=== PATIENT | female | born 1930 | race Caucasian/White ===

== ENCOUNTER 2019-08-06 07:27 | Inpatient (IN) | payer OTHER ==
[2019-08-06 09:40] LABS: BASO % 1.1 % (0-2.0); EOS % 2.5 % (0-4.5); HEMATOCRIT 26.5 % (32.4-45.2); HEMOGLOBIN 9.2 GM/dL (10.7-15.3); LYMPH % 5.5 % (8-40); MCH 32.8 pg (25.7-33.7); MCHC 34.7 g/dl (32.0-36.0); MEAN CELL VOLUME 94.4 fl (80-96); MEAN PLT VOLUME 7.7 fl (7.5-11.1); MONO % 6.2 % (3.8-10.2); NEUT % 84.7 % (42.8-82.8); PLATELET COUNT 278 K/MM3 (134-434); RBC 2.81 M/mm3 (3.60-5.2); RDW 17.8 % (11.6-15.6); WHITE BLOOD COUNT 6.9 K/mm3 (4.0-10.0)
[2019-08-06 10:02] LABS: INR 1.19 (0.83-1.09); PROTHROMBIN TIME (PATIENT) 14.1 SEC (9.7-13.0)
[2019-08-06 10:16] LABS: BLOOD UREA NITROGEN 36.9 mg/dL (7-18); CALCIUM 8.9 mg/dL (8.5-10.1); CREATININE 1.3 mg/dL (0.55-1.3); POTASSIUM 5.1 mmol/L (3.5-5.1)
[2019-08-06] MEDS ORDERED: ATENOLOL 25 MG TABLET (FP) PO ONE (10:56)
--- NOTE | 2019-08-06 11:02 | PDOC ---
Documentation entered by Roel Nice SCRIBE, acting as scribe for Jamie Keen MD. Jamie Keen MD: This documentation has been prepared by the Tex merlos Nirvannie, SCRIBE, under my direction and personally reviewed by me in its entirety. I confirm that the documentation accurately reflects all work, treatment, procedures, and medical decision making performed by me. History of Present Illness - General Stated Complaint: NASAL BLEED Time Seen by Provider: 08/06/19 07:47 History Source: Patient Exam Limitations: No Limitations - History of Present Illness Initial Comments: 08/06/19 08:55 The patient is a 89 year old female, with a significant past medical history of hypothyroidism, dementia, hypertension, hyperlipidemia, recurrent epistaxis (s/ p ?L nare cauterization), and atrial fibrillation (on Eliquis), who presents to the emergency department via EMS from [facility] with left nare epistaxis. As per patients son at bedside and EMR, the patient was evaluated in the ER 3 days ago (08/03) for right nare epistaxis and discharged with packing. Son notes during the course of the first night the balloon was removed and after approximately 36 hours the nurse at the facility removed the packing. As per son, she had an appointment with Dr. Hester this morning at 9am, however, missed it secondary to patient experiencing an left nare epistaxis. She denies recent headaches or dizziness. She denies recent nausea, vomit, diarrhea or constipation. She denies recent chest pain or shortness of breath. Allergies: Aspirin. Primary Care Physician: Dr. [facility] Aide: Dr. Winston Brady Past History - Past Medical History Allergies/Adverse Reactions: Allergies Allergy/AdvReac Type Severity Reaction Status Date / Time aspirin Allergy Verified 08/03/19 08:52 Home Medications: Ambulatory Orders Atenolol [Tenormin] 25 mg PO DAILY 08/06/19 Simvastatin [Zocor -] 40 mg PO HS 08/06/19 COPD: No HTN: Yes Hypercholesterolemia: Yes Thyroid Disease: Yes - Psycho Social/Smoking Cessation Hx Smoking History: Never smoked Have you smoked in the past 12 months: No Hx Alcohol Use: No Drug/Substance Use Hx: No Review of Systems - Review of Systems Able to Perform ROS?: Yes Comments:: 08/06/19 08:55 CONSTITUTIONAL: No fever, no chills, no fatigue EYES: No visual changes ENT: +Left nare epistaxis. No ear pain, no sore throat CARDIOVASCULAR: No chest pain, no palpitations RESPIRATORY: No cough, no SOB GI: No abdominal pain, no nausea, no vomiting, no constipation, no diarrhea GENITOURINARY: No dysuria, no frequency, no hematuria MUSKULOSKELETAL: No back pain, no joint pain, no myalgias SKIN: No rash NEURO: No headache All Other Systems: Reviewed and Negative *Physical Exam - Vital Signs Last Vital Signs Temp Pulse Resp BP Pulse Ox 98.0 F 55 L 17 165/89 100 08/06/19 07:40 08/06/19 07:40 08/06/19 07:40 08/06/19 07:40 08/06/19 07:40 - Physical Exam 08/06/19 10:59 EXAMINATION CONSTITUTIONAL: Awake, alert, well nourished, nad HEAD: Normocephalic; atraumatic EYES: PERRL; EOM intact ENMT: + active epistaxis from left nare (direc presure aplied) NECK: Supple; non-tender; no cervical lymphadenopathy CARD: iregularly irregular; 2/6 se murmur, no rubs, or gallops RESP: Normal chest excursion with respiration; breath sounds clear and equal bilaterally; no wheezes, rhonchi, or rales ABD: Soft, non-distended; non-tender; no palpable organomegaly, no palpable hernias EXT: Normal ROM in all four extremities; non-tender to palpation; distal pulses intact SKIN: Warm, dry, no rash NEURO: moving all extr symmetrically; gait-deffered. Heart Score/ECG Review #1 08/06/19 12:08 EKG performed at: 06 Aug 2019 at 11:51:50 Vent Rate: 62 bpm DC interval: 194 ms QRS duration: 86 ms QT/QTc: 460/466 ms P-R-T axes 62 -48 64 Poor data quality, interpretation may be adversely affected. Normal sinus rhythm Left anterior fascicular block Cannot rule out inferior infarct (masked by fascicular block?), age undetermined Anterior infarct, age undetermined Abnormal ECG ED Treatment Course - LABORATORY CBC & Chemistry Diagram: 08/06/19 09:25 08/06/19 09:11 - ADDITIONAL ORDERS Additional order review: Laboratory Results 08/06/19 02 09:25 09:11 PT with INR 14.10 H INR 1.19 H Sodium 140 Potassium 5.1 Chloride 106 Carbon Dioxide 28 Anion Gap 5 L BUN 36.9 H Creatinine 1.3 Est GFR (CKD-EPI)AfAm 42.42 Est GFR (CKD-EPI)NonAf 36.60 Random Glucose 95 Calcium 8.9 TSH 84.90 H 08/06/19 09:25 RBC 2.81 L MCV 94.4 MCHC 34.7 RDW 17.8 H MPV 7.7 Neutrophils % 84.7 H Lymphocytes % 5.5 L D Monocytes % 6.2 Eosinophils % 2.5 Basophils % 1.1 Medical Decision Making - Medical Decision Making 08/06/19 11:01 Patient is an 89-year-old female with multiple comorbidities presents to the ER with recurrent atraumatic epistaxis. Patient is mildly hypertensive, nontoxic- appearing; initial evaluation, patient noted with active epistaxis from the left nare. Large clot evacuated and direct pressure applied. Gauze dressing inserted. Case discussed with Dr. Hester of ENT. He will evaluate the patient for possible cauterization. Patient is also noted to be moderately anemic and severely hypothyroid. [place] [facility] [place]. Discharge - Discharge Information Problems reviewed: Yes Clinical Impression/Diagnosis: Epistaxis Anemia Qualifiers: Anemia type: unspecified type Qualified Code(s): D64.9 - Anemia, unspecified Condition: Fair Disposition: HOME - Follow up/Referral Referrals: Panda Crowe MD [Primary Care Provider] - - Patient Discharge Instructions - Post Discharge Activity
[2019-08-06] MEDS ORDERED: ATENOLOL 25 MG TABLET (FP) ONE (11:12)
[2019-08-06] MEDS ORDERED: SODIUM CHLORIDE 500 ML IV STA (12:25)
--- NOTE | 2019-08-06 13:34 | CON.ENT ---
Consult Consult Specialty:: ENT Referred by:: Dr Keen Reason for Consultation:: nasal bleeding - History of Present Illness Chief Complaint: nasal bleeding History of Present Illness: 89 yo F with hx atrial fibrillation, on Eliquis, presents with acute nasal bleeding left side 3 d agto had acute epistaxis and in ER had right nasal packing placed. this was by report removed by long term staff, but then nasal bleeding developed. She was scheduled for outpatient ENT appointment, but this morning had acute bleeding from left side so was BIBA to ER this morning. left nasal bleeding has improved but BP elevated son and daughter in law are present, provided additional history pt has had intermittent nasal bleeding for ~30 years - History Source History Provided By: Patient, Family Member, Medical Record Limitations to Obtaining History: No Limitations - Alcohol/Substance Use Hx Alcohol Use: No - Smoking History Smoking history: Never smoked Have you smoked in the past 12 months: No Home Medications - Allergies Allergies/Adverse Reactions: Allergies Allergy/AdvReac Type Severity Reaction Status Date / Time aspirin Allergy Verified 08/03/19 08:52 - Home Medications Home Medications: Ambulatory Orders Albuterol Sulfate [Proventil Hfa] 6.7 gm IH PRN PRN 08/06/19 Allopurinol 300 mg PO DAILY 08/06/19 Apixaban [Eliquis -] 2.5 mg PO BID 08/06/19 Atenolol [Tenormin] 25 mg PO DAILY 08/06/19 Donepezil HCl [Aricept -] 10 mg PO HS 08/06/19 Polyethylene Glycol 3350 [Miralax 119 gm Btl -] 17 gm PO DAILY 08/06/19 Simvastatin [Zocor -] 40 mg PO HS 08/06/19 Acetaminophen [Tylenol .Regular Strength -] 650 mg PO Q6H PRN tablet 08/08/19 Allopurinol [Zyloprim -] 300 mg PO DAILY tablet 08/08/19 Atenolol [Tenormin -] 25 mg PO DAILY tablet 08/08/19 Atorvastatin Ca [Lipitor] 20 mg PO HS tablet 08/08/19 Donepezil HCl [Aricept -] 10 mg PO DAILY tablet 08/08/19 Levothyroxine [Synthroid -] 150 mcg PO DAILY@0700 #30 tablet 08/08/19 Physical Exam-ENT Vital Signs: Vital Signs Temperature 98.0 F 08/06/19 07:40 Pulse Rate 66 08/06/19 11:30 Respiratory Rate 20 08/06/19 11:30 Blood Pressure 120/55 L 08/06/19 11:30 O2 Sat by Pulse Oximetry (%) 100 08/06/19 11:30 Constitutional: Yes: No Distress, Calm Head: Yes: WNL Face: Yes: WNL Eyes: Yes: WNL Nasal Passage: Yes: Other (coagulum present right nasal cavity- left undie sturbed left nasal cavity - gauze removed, no active bleeding, lidocaine and phenylephrine placed. some blood in mid nasal cavity and on IT but no active bleeding, smalll telangiectasia left anterior septum NOT associated with a suspected bleeding site) Oral/Pharynx: Yes: Other (no lesions, old blood left oropharynx, no active bleeding, voice clear, strong, no stridor or respiratory distress) Outer Ear: Yes: WNL Ear Canal: Yes: WNL
[2019-08-06] MEDS ORDERED: ALBUTEROL SO4 0.083% IH SOL 2.5 MG/3 ML VIAL.NEB. NEB PRN (15:05)
[2019-08-06 15:15] VITALS: BMI 24.3
--- NOTE | 2019-08-06 15:15 | HP ---
89 F h/o Afib on Eliquis, HTN, HLD, dementia, obesity, presents with acute L nasal bleeding. Patient's family endorses long history of recurrent epistaxis with first episode about 30 years ago. In ED patient was seen by ENT Dr. Hester who placed nasal gel/packing to stop bleeding in L nostril, and patient had R gel/packing in R nostril, on exam she was found to have bleeding telangectasias. Patient otherwise denies fever/chills/N/V/D/ORTA/CP/SOB, mild drop in Hgb noted no transfusion given. Patient to be admitted for further monitoring and management of comorbidities. PE GA comfortable, AAox2 (self and place only), speaking in full sentences HEENT NC/AT, EOMI, nasal plug in R and L nostril with dried blood at surface no active bleeding, neck supple, oral mucosa no ulcers or bleeding, MMM Chest CTAB, no crackles or wheezing CVS Irregularly irregular, BEULAH+ Abd obese, Soft, NT, no guarding Ext No LE edema, no calf tenderness Vital Signs - 24 hr 08/06/19 08/06/19 08/06/19 07:40 10:51 11:30 Temperature 98.0 F Pulse Rate 55 L Pulse Rate [ 64 66 Right Radial] Respiratory 17 16 20 Rate Blood Pressure 165/89 Blood Pressure 116/50 L 120/55 L [Left Arm] O2 Sat by Pulse 100 96 100 Oximetry (%) 08/06/19 13:29 Temperature 98.2 F Pulse Rate Pulse Rate [ 68 Right Radial] Respiratory 16 Rate Blood Pressure Blood Pressure 122/71 [Left Arm] O2 Sat by Pulse 98 Oximetry (%) Laboratory Results - last 24 hr 08/06/19 08/06/19 08/06/19 09:11 09:25 09:25 WBC 6.9 RBC 2.81 L Hgb 9.2 L Hct 26.5 L D MCV 94.4 MCH 32.8 MCHC 34.7 RDW 17.8 H Plt Count 278 MPV 7.7 Absolute Neuts (auto) 5.9 Neutrophils % 84.7 H Lymphocytes % 5.5 L D Monocytes % 6.2 Eosinophils % 2.5 Basophils % 1.1 Nucleated RBC % 0 PT with INR 14.10 H INR 1.19 H Sodium 140 Potassium 5.1 Chloride 106 Carbon Dioxide 28 Anion Gap 5 L BUN 36.9 H Creatinine 1.3 Est GFR (CKD-EPI)AfAm 42.42 Est GFR (CKD-EPI)NonAf 36.60 Random Glucose 95 Calcium 8.9 TSH 84.90 H Blood Type Antibody Screen 08/06/19 12:21 WBC RBC Hgb Hct MCV MCH MCHC RDW Plt Count MPV Absolute Neuts (auto) Neutrophils % Lymphocytes % Monocytes % Eosinophils % Basophils % Nucleated RBC % PT with INR INR Sodium Potassium Chloride Carbon Dioxide Anion Gap BUN Creatinine Est GFR (CKD-EPI)AfAm Est GFR (CKD-EPI)NonAf Random Glucose Calcium TSH Blood Type A POSITIVE Antibody Screen Negative Home Medications Medication Instructions Recorded Albuterol Sulfate [Proventil Hfa] 6.7 gm IH PRN PRN 08/06/19 Allopurinol 300 mg PO DAILY 08/06/19 Apixaban [Eliquis -] 2.5 mg PO BID 08/06/19 Atenolol [Tenormin] 25 mg PO DAILY 08/06/19 Donepezil HCl [Aricept -] 10 mg PO HS 08/06/19 Levothyroxine [Synthroid -] 112 mcg PO DAILY 08/06/19 Polyethylene Glycol 3350 [Miralax 17 gm PO DAILY 08/06/19 (For Daily Use) -] Simvastatin [Zocor -] 40 mg PO HS 08/06/19 Current Medications Generic Name Dose Route Start Last Admin Trade Name Freq PRN Reason Stop Dose Admin Acetaminophen 650 mg 08/06/19 14:43 Tylenol - PO Q6H PRN Fever Or Pain Albuterol Sulfate 1 amp 08/06/19 15:05 Ventolin 0.083% Nebulizer Soln - NEB Q4H PRN SHORT OF BREATH/WHEEZING Allopurinol 300 mg 08/07/19 10:00 Zyloprim - PO DAILY SIMEON Atenolol 25 mg 08/07/19 10:00 Tenormin - PO DAILY SIMEON Atorvastatin Calcium 20 mg 08/06/19 22:00 Lipitor - PO HS SIMEON Donepezil HCl 10 mg 08/07/19 10:00 Aricept - PO DAILY SIMEON A/P: 89 F h/o Afib on Eliquis with recurrent epistaxis, HTN, HLD, dementia, admitted for L nasal epistaxis resolved with local phenylephrine and gel packing. L nasal epistaxis resolved with nasal packing, patient appears to be non-compliant with directions to not blow her nose, was seen in ED to manipulate the nostril and blow her nose, reinforce instruction to patient to not blow her nose or manipulate that area. Transfuse PRN, watch CBC ENT consult: Dr Hester Atrial fibrillation rate controlled, cont. Atenolol hold AC for atleast 24 hours HTn restart home BP meds HLD restart statin Demenetia frequent re-orientation, watch for dawning restart Aricept 10mg daily DVT ppx: SCD Med- surg Visit type - Emergency Visit Emergency Visit: Yes ED Registration Date: 08/06/19 Care time: The patient presented to the Emergency Department on the above date and was hospitalized for further evaluation of their emergent condition. - New Patient This patient is new to me today: Yes Date on this admission: 08/06/19 - Critical Care Critical Care patient: No
[2019-08-06] MEDS: ACETAMINOPHEN 325 MG TABLET (FP) PO PRN (15:22)
--- NOTE | 2019-08-06 16:15 | CONSULT ---
Consult Consult Specialty:: endocrine Referred by:: dr lucy chapa Reason for Consultation:: hypothyroidism - History of Present Illness Chief Complaint: weakness and lethargy History of Present Illness: 89 yo female pmh hypothyroidism,afib on eliquis,dementia, HTN and HLD presented from [facility] for a nose bleed. Reports from OR package state "resident bleeding profusely from nose.has difficulty with communication weakness,lethargic and epistaxis recent events made clinical symptoms difficult to evaluate.found to have sever hypothyroidism, - Alcohol/Substance Use Hx Alcohol Use: No - Smoking History Smoking history: Never smoked Have you smoked in the past 12 months: No Home Medications - Allergies Allergies/Adverse Reactions: Allergies Allergy/AdvReac Type Severity Reaction Status Date / Time aspirin Allergy Verified 08/03/19 08:52 - Home Medications Home Medications: Ambulatory Orders Albuterol Sulfate [Proventil Hfa] 6.7 gm IH PRN PRN 08/06/19 Allopurinol 300 mg PO DAILY 08/06/19 Apixaban [Eliquis -] 2.5 mg PO BID 08/06/19 Atenolol [Tenormin] 25 mg PO DAILY 08/06/19 Donepezil HCl [Aricept -] 10 mg PO HS 08/06/19 Levothyroxine [Synthroid -] 112 mcg PO DAILY 08/06/19 Polyethylene Glycol 3350 [Miralax (For Daily Use) -] 17 gm PO DAILY 08/06/19 Simvastatin [Zocor -] 40 mg PO HS 08/06/19 Physical Exam Vital Signs: Vital Signs Temperature 98.8 F 08/06/19 14:57 Pulse Rate 60 08/06/19 14:57 Respiratory Rate 20 08/06/19 14:57 Blood Pressure 128/68 08/06/19 14:57 O2 Sat by Pulse Oximetry (%) 98 08/06/19 13:29 Constitutional: Yes: Calm Eyes: Yes: EOM Intact HENT: Yes: Normocephalic, Epistaxis, Pharyngeal Erythema, Other Neck: Yes: Trachea Midline Cardiovascular: Yes: Bradycardia Respiratory: Yes: CTA Bilaterally Gastrointestinal: Yes: Normal Bowel Sounds ...Rectal Exam: Yes: Deferred Renal/: Yes: WNL Musculoskeletal: Yes: Muscle Weakness Extremities: Yes: Delayed Capillary Refill, Erythema Edema: No Neurological: Yes: Alert, Confusion, Lethargy Labs: CBC, BMP 08/06/19 09:25 08/06/19 09:11 Problem List - Problems (1) Hypothyroid Problems reviewed: Yes Code(s): E03.9 - HYPOTHYROIDISM, UNSPECIFIED (2) Bleeding nose Problems reviewed: Yes Code(s): R04.0 - EPISTAXIS Assessment/Plan Current Active Problems hypothyroidism smith,severe Anemia (Acute) Bleeding nose (Acute) Abnormal Lab Results 08/06/19 08/06/19 08/06/19 09:11 09:25 09:25 RBC 2.81 L Hgb 9.2 L Hct 26.5 L D RDW 17.8 H Neutrophils % 84.7 H Lymphocytes % 5.5 L D PT with INR 14.10 H INR 1.19 H Anion Gap 5 L BUN 36.9 H TSH 84.90 H plan; synthroid 50mcg ivpush daily once able to take po synthroid 100mcg po daily repeat tsh free t4
[2019-08-06] MEDS: LEVOTHYROXINE SODIUM 100 MCG VIAL IVPUSH SCH (17:28)
[2019-08-06] MEDS: ATORVASTATIN CA 20 MG TABLET (FP) PO SCH (21:27)
--- NOTE | 2019-08-07 08:13 | PN ---
Progress Note, Physician Chief Complaint: Sitting in chair eating breakfast. Nasal bleeding stop with packing. Pleasantly confused. History of Present Illness: 89 F h/o Afib on Eliquis, HTN, HLD, dementia, obesity, presents with acute L nasal bleeding - Current Medication List Current Medications: Active Medications Acetaminophen (Tylenol -) 650 mg PO Q6H PRN PRN Reason: Fever Or Pain Last Admin: 08/06/19 15:22 Dose: 650 mg Albuterol Sulfate (Ventolin 0.083% Nebulizer Soln -) 1 amp NEB Q4H PRN PRN Reason: SHORT OF BREATH/WHEEZING Allopurinol (Zyloprim -) 300 mg PO DAILY [facility] Atenolol (Tenormin -) 25 mg PO DAILY [facility] Atorvastatin Calcium (Lipitor -) 20 mg PO HS [facility] Last Admin: 08/06/19 21:27 Dose: 20 mg Donepezil HCl (Aricept -) 10 mg PO DAILY [facility] Levothyroxine Sodium (Synthroid Injection -) 50 mcg IVPUSH DAILY [facility] Last Admin: 08/06/19 17:28 Dose: 50 mcg - Objective Vital Signs: Vital Signs Temperature 97.8 F 08/06/19 18:00 Pulse Rate 61 08/06/19 18:00 Respiratory Rate 20 08/06/19 18:00 Blood Pressure 123/60 08/06/19 18:00 O2 Sat by Pulse Oximetry (%) 98 08/06/19 13:29 Constitutional: Yes: Well Nourished, No Distress, Calm Eyes: Yes: WNL, Conjunctiva Clear HENT: Yes: Atraumatic, Normocephalic, Other ( nasal plug in R and L nostril with dried blood at surface no active bleeding,) Neck: Yes: WNL, Supple, Trachea Midline Cardiovascular: Yes: WNL, Regular Rate and Rhythm Respiratory: Yes: WNL, Regular, CTA Bilaterally Gastrointestinal: Yes: WNL, Normal Bowel Sounds ...Rectal Exam: Yes: Deferred Genitourinary: Yes: WNL Breast(s): Yes: WNL Musculoskeletal: Yes: WNL Extremities: Yes: WNL Edema: No Peripheral Pulses WNL: Yes Peripheral Pulses: Left Radial: 2+, Right Radial: 2+, Left Doralis Pedis: 2+, Right Dorsalis Pedis: 2+, Left Femoral: 2+, Right Femoral: 2+ Integumentary: Yes: WNL Neurological: Yes: Alert, Confusion (plesantly confused to place) ...Motor Strength: WNL Psychiatric: Yes: WNL Labs: CBC, BMP 08/06/19 09:25 08/06/19 09:11 INR, PTT INR 1.19 (0.83-1.09) H 08/06/19 09:25 - ....Imaging Chest X-ray: Image Reviewed (CXR: no effusion/infiltrates) Problem List - Problems (1) HTN (hypertension) Assessment/Plan: c.w atenolol with hold parameters opt to keep BP well controlled to lowers side to aid with epistaxis Code(s): I10 - ESSENTIAL (PRIMARY) HYPERTENSION (2) HLD (hyperlipidemia) Assessment/Plan: c/w statin Code(s): E78.5 - HYPERLIPIDEMIA, UNSPECIFIED (3) Dementia Assessment/Plan: supportive care fall precautions c/w aricept Code(s): F03.90 - UNSPECIFIED DEMENTIA WITHOUT BEHAVIORAL DISTURBANCE (4) Prophylactic measure Assessment/Plan: FEN Fluids: adequate PO intake Electrolytes: replete as indicated Nutrition: low sodium diet DVT prophylaxis: SCDs, oob, ambulation no chemical AC given epistaxis Dispo: continues to require inpatient care. Full code discharge planning Code(s): Z29.9 - ENCOUNTER FOR PROPHYLACTIC MEASURES, UNSPECIFIED (5) Bleeding nose Assessment/Plan: nasal packing placed by ENT monitor for bleeding mainatin normotension Code(s): R04.0 - EPISTAXIS (6) Afib Code(s): I48.91 - UNSPECIFIED ATRIAL FIBRILLATION (7) Hypothyroid Assessment/Plan: obtain lab results from family, TSH 2 weeks ago at [facility] 102 now 60 seen by endocrinology and IV sythroid given will change to synthroid 100mcg qd and continue to monitor Code(s): E03.9 - HYPOTHYROIDISM, UNSPECIFIED (8) Anemia Assessment/Plan: hgb stable 8.0 no indication for additional PRBC continue to monitor Code(s): D64.9 - ANEMIA, UNSPECIFIED Qualifiers: Anemia type: unspecified type Qualified Code(s): D64.9 - Anemia, unspecified Visit type - Emergency Visit Emergency Visit: Yes ED Registration Date: 08/06/19 Care time: The patient presented to the Emergency Department on the above date and was hospitalized for further evaluation of their emergent condition. - New Patient This patient is new to me today: Yes Date on this admission: 08/07/19 - Critical Care Critical Care patient: No - Discharge Referral Referred to [facility] Med [facility].C[facility] No
[2019-08-07 09:14] LABS: EOS % 4.3 % (0-4.5); HEMOGLOBIN 8.5 GM/dL (10.7-15.3); LYMPH % 16.2 % (8-40); MCH 32.3 pg (25.7-33.7); MCHC 33.9 g/dl (32.0-36.0); MEAN CELL VOLUME 95.1 fl (80-96); MEAN PLT VOLUME 7.9 fl (7.5-11.1); MONO % 7.5 % (3.8-10.2); PLATELET COUNT 244 K/MM3 (134-434); RBC 2.63 M/mm3 (3.60-5.2); RDW 18.1 % (11.6-15.6); WHITE BLOOD COUNT 4.6 K/mm3 (4.0-10.0)
[2019-08-07 09:31] LABS: INR 1.07 (0.83-1.09); PROTHROMBIN TIME (PATIENT) 12.6 SEC (9.7-13.0)
[2019-08-07 09:33] LABS: ACTIVATED PTT 39.2 SECONDS (25.2-36.5)
[2019-08-07] MEDS: LEVOTHYROXINE SODIUM 100 MCG VIAL IVPUSH SCH (09:46)
[2019-08-07] MEDS: DONEPEZIL HCL 10 MG TABLET (FP) PO SCH (09:47)
[2019-08-07] MEDS: ATENOLOL 25 MG TABLET (FP) PO SCH (09:48)
[2019-08-07] MEDS: ALLOPURINOL 300 MG TABLET (FP) PO SCH (09:48)
[2019-08-07] MEDS: ACETAMINOPHEN 325 MG TABLET (FP) PO PRN (09:50)
[2019-08-07 09:54] LABS: ALBUMIN 2.7 g/dl (3.4-5.0); BILIRUBIN,TOTAL 0.3 mg/dL (0.2-1); BLOOD UREA NITROGEN 28.4 mg/dL (7-18); CALCIUM 8.6 mg/dL (8.5-10.1); CREATININE 1.2 mg/dL (0.55-1.3); MAGNESIUM 2.7 mg/dL (1.8-2.4); POTASSIUM 4.8 mmol/L (3.5-5.1); TOT PROT 5.9 g/dl (6.4-8.2)
--- NOTE | 2019-08-07 15:14 | EKG ---
Test Reason : Blood Pressure : / mmHG Vent. Rate : 062 BPM Atrial Rate : 062 BPM P-R Int : 194 ms QRS Dur : 086 ms QT Int : 460 ms P-R-T Axes : 062 -48 064 degrees QTc Int : 466 ms POOR DATA QUALITY, INTERPRETATION MAY BE ADVERSELY AFFECTED NORMAL SINUS RHYTHM LEFT ANTERIOR FASCICULAR BLOCK CANNOT RULE OUT INFERIOR INFARCT (MASKED BY FASCICULAR BLOCK?) , AGE UNDETERMINED ANTERIOR INFARCT (CITED ON OR BEFORE 03-AUG-2019) ABNORMAL ECG WHEN COMPARED WITH ECG OF 03-AUG-2019 10:12, NO SIGNIFICANT CHANGE WAS FOUND Confirmed by ANTHONY BAHENA MD ([id number]) on 08/07/2019 3:13:57 PM Referred By: Confirmed By:ANTHONY BAHENA MD
[2019-08-07] MEDS: ATORVASTATIN CA 20 MG TABLET (FP) PO SCH (21:04)
[2019-08-08 06:30] VITALS: TEMP 97.8
[2019-08-08] MEDS ORDERED: LEVOTHYROXINE NA 100 MCG TABLET (FP) PO SCH (07:00)
--- NOTE | 2019-08-08 08:29 | PN ---
Progress Note, Physician History of Present Illness: 89 F h/o Afib on Eliquis, HTN, HLD, dementia, obesity, presents with acute L nasal bleeding - Current Medication List Current Medications: Active Medications Acetaminophen (Tylenol -) 650 mg PO Q6H PRN PRN Reason: Fever Or Pain Last Admin: 08/07/19 09:50 Dose: 650 mg Albuterol Sulfate (Ventolin 0.083% Nebulizer Soln -) 1 amp NEB Q4H PRN PRN Reason: SHORT OF BREATH/WHEEZING Allopurinol (Zyloprim -) 300 mg PO DAILY [facility] Last Admin: 08/07/19 09:48 Dose: 300 mg Atenolol (Tenormin -) 25 mg PO DAILY [facility] Last Admin: 08/07/19 09:48 Dose: 25 mg Atorvastatin Calcium (Lipitor -) 20 mg PO HS [facility] Last Admin: 08/07/19 21:04 Dose: 20 mg Donepezil HCl (Aricept -) 10 mg PO DAILY [facility] Last Admin: 08/07/19 09:47 Dose: 10 mg Levothyroxine Sodium (Synthroid -) 100 mcg PO DAILY@0700 [facility] Last Admin: 08/08/19 06:11 Dose: 100 mcg - Objective Vital Signs: Vital Signs Temperature 97.8 F 08/08/19 06:29 Pulse Rate 56 L 08/08/19 06:29 Respiratory Rate 20 08/08/19 06:29 Blood Pressure 127/70 08/08/19 06:29 O2 Sat by Pulse Oximetry (%) 98 08/06/19 13:29 Labs: CBC, BMP 08/07/19 07:50 08/07/19 06:00 INR, PTT INR 1.07 (0.83-1.09) 08/07/19 07:50 Problem List - Problems (1) HTN (hypertension) Code(s): I10 - ESSENTIAL (PRIMARY) HYPERTENSION (2) HLD (hyperlipidemia) Code(s): E78.5 - HYPERLIPIDEMIA, UNSPECIFIED (3) Dementia Code(s): F03.90 - UNSPECIFIED DEMENTIA WITHOUT BEHAVIORAL DISTURBANCE (4) Prophylactic measure Code(s): Z29.9 - ENCOUNTER FOR PROPHYLACTIC MEASURES, UNSPECIFIED (5) Bleeding nose Code(s): R04.0 - EPISTAXIS (6) Afib Code(s): I48.91 - UNSPECIFIED ATRIAL FIBRILLATION (7) Hypothyroid Code(s): E03.9 - HYPOTHYROIDISM, UNSPECIFIED (8) Anemia Code(s): D64.9 - ANEMIA, UNSPECIFIED Qualifiers: Anemia type: unspecified type Qualified Code(s): D64.9 - Anemia, unspecified
[2019-08-08] MEDS: ATENOLOL 25 MG TABLET (FP) PO SCH (09:27)
[2019-08-08] MEDS: ALLOPURINOL 300 MG TABLET (FP) PO SCH (09:27)
[2019-08-08] MEDS: DONEPEZIL HCL 10 MG TABLET (FP) PO SCH (09:27)
[2019-08-08 09:36] LABS: BASO % 1.1 % (0-2.0); EOS % 3.3 % (0-4.5); HEMATOCRIT 26.4 % (32.4-45.2); HEMOGLOBIN 9.1 GM/dL (10.7-15.3); LYMPH % 19.9 % (8-40); MCH 33.1 pg (25.7-33.7); MCHC 34.5 g/dl (32.0-36.0); MONO % 7.2 % (3.8-10.2); NEUT % 68.5 % (42.8-82.8); PLATELET COUNT 300 K/MM3 (134-434); RBC 2.75 M/mm3 (3.60-5.2); WHITE BLOOD COUNT 6.1 K/mm3 (4.0-10.0)
[2019-08-08 10:33] LABS: ALBUMIN 2.8 g/dl (3.4-5.0); BILIRUBIN,TOTAL 0.5 mg/dL (0.2-1); BLOOD UREA NITROGEN 27.3 mg/dL (7-18); CALCIUM 8.5 mg/dL (8.5-10.1); CREATININE 1.2 mg/dL (0.55-1.3); MAGNESIUM 2.4 mg/dL (1.8-2.4); POTASSIUM 4.7 mmol/L (3.5-5.1); TOT PROT 5.9 g/dl (6.4-8.2)
[2019-08-08] MEDS ORDERED: LEVOTHYROXINE NA 112 MCG TABLET (FP) PO SCH (13:36)
[2019-08-08] MEDS ORDERED: APIXABAN 2.5 MG TABLET PO SCH (13:45)
[2019-08-08 14:23] VITALS: BP 98/52; PULSE 60
--- NOTE | 2019-08-08 15:20 | DS ---
Physical Exam: SUBJECTIVE: Patient seen and examined OBJECTIVE: Vital Signs Period Temp Pulse Resp BP Sys/Harrington Pulse Ox Last 24 Hr 97.5 F-97.8 F 56-60 20-20 98-127/51-70 PHYSICAL EXAM Constitutional: Yes: Well Nourished, No Distress, Calm Eyes: Yes: WNL, Conjunctiva Clear HENT: Yes: Atraumatic, Normocephalic, Other ( nasal plug in R and L nostril with dried blood at surface no active bleeding,) Neck: Yes: WNL, Supple, Trachea Midline Cardiovascular: Yes: WNL, Regular Rate and Rhythm Respiratory: Yes: WNL, Regular, CTA Bilaterally Gastrointestinal: Yes: WNL, Normal Bowel Sounds ...Rectal Exam: Yes: Deferred Genitourinary: Yes: WNL Breast(s): Yes: WNL Musculoskeletal: Yes: WNL Extremities: Yes: WNL Edema: No Peripheral Pulses WNL: Yes Peripheral Pulses: Left Radial: 2+, Right Radial: 2+, Left Doralis Pedis: 2+, Right Dorsalis Pedis: 2+, Left Femoral: 2+, Right Femoral: 2+ Integumentary: Yes: WNL Neurological: Yes: Alert, Confusion (plesantly confused to place) ...Motor Strength: WNL Psychiatric: Yes: WNL LABS Laboratory Results - last 24 hr 08/07/19 08/08/19 08/08/19 07:50 07:55 07:55 WBC 6.1 RBC 2.75 L Hgb 9.1 L Hct 26.4 L MCV 96.0 MCH 33.1 MCHC 34.5 RDW 18.0 H Plt Count 300 D MPV 8.0 Absolute Neuts (auto) 4.2 Neutrophils % 68.5 Lymphocytes % 19.9 D Monocytes % 7.2 Eosinophils % 3.3 Basophils % 1.1 Nucleated RBC % 0 Sodium 139 Potassium 4.7 Chloride 107 Carbon Dioxide 25 Anion Gap 7 L BUN 27.3 H Creatinine 1.2 Est GFR (CKD-EPI)AfAm 46.73 Est GFR (CKD-EPI)NonAf 40.32 Random Glucose 73 L Calcium 8.5 Magnesium 2.4 Total Bilirubin 0.5 AST 20 ALT 22 Alkaline Phosphatase 82 Total Protein 5.9 L Albumin 2.8 L TSH 70.20 H Free T3 1.4 L HOSPITAL COURSE: Date of Admission:08/06/19 Date of Discharge: 08/08/19 Problem List - Problems (1) HTN (hypertension) Assessment/Plan: c/w atenolol with hold parameters opt to keep BP well controlled to lowers side to aid with epistaxis Code(s): I10 - ESSENTIAL (PRIMARY) HYPERTENSION (2) HLD (hyperlipidemia) Assessment/Plan: c/w statin Code(s): E78.5 - HYPERLIPIDEMIA, UNSPECIFIED (3) Dementia Assessment/Plan: supportive care fall precautions c/w aricept Code(s): F03.90 - UNSPECIFIED DEMENTIA WITHOUT BEHAVIORAL DISTURBANCE (4) Prophylactic measure Assessment/Plan: FEN Fluids: adequate PO intake Electrolytes: all wnl Nutrition: low sodium diet with ensure DVT prophylaxis: eliquis bid Dispo: continues to require inpatient care. Full code discharge planning Code(s): Z29.9 - ENCOUNTER FOR PROPHYLACTIC MEASURES, UNSPECIFIED (5) Bleeding nose Assessment/Plan: nasal packing placed by ENT no further bleeding Code(s): R04.0 - EPISTAXIS (6) Afib rate controlled Code(s): I48.91 - UNSPECIFIED ATRIAL FIBRILLATION (7) Hypothyroid Assessment/Plan: obtain lab results from family, TSH 2 weeks ago at [facility] 102 now 60 seen by endocrinology and IV sythroid given will change to synthroid 100mcg qd and continue to monitor Code(s): E03.9 - HYPOTHYROIDISM, UNSPECIFIED (8) Anemia Assessment/Plan: hgb stable 8.0 no indication for additional PRBC continue to monitor Code(s): D64.9 - ANEMIA, UNSPECIFIED Qualifiers: Anemia type: unspecified type Qualified Code(s): D64.9 - Anemia, unspecified medially stable to returb back to [facility] Minutes to complete discharge: 45 Discharge Summary Problems reviewed: Yes Reason For Visit: NASAL BLEED Current Active Problems Afib (Acute) Anemia (Acute) Bleeding nose (Acute) Dementia (Acute) HLD (hyperlipidemia) (Acute) HTN (hypertension) (Acute) Hypothyroid (Acute) Prophylactic measure (Acute) Hospital Course: HOSPITAL COURSE: Date of Admission:08/06/19 Date of Discharge: 08/08/19 Problem List - Problems (1) HTN (hypertension) Assessment/Plan: c/w atenolol with hold parameters opt to keep BP well controlled to lowers side to aid with epistaxis Code(s): I10 - ESSENTIAL (PRIMARY) HYPERTENSION (2) HLD (hyperlipidemia) Assessment/Plan: c/w statin Code(s): E78.5 - HYPERLIPIDEMIA, UNSPECIFIED (3) Dementia Assessment/Plan: supportive care fall precautions c/w aricept Code(s): F03.90 - UNSPECIFIED DEMENTIA WITHOUT BEHAVIORAL DISTURBANCE (4) Prophylactic measure Assessment/Plan: FEN Fluids: adequate PO intake Electrolytes: all wnl Nutrition: low sodium diet with ensure DVT prophylaxis: eliquis bid Dispo: continues to require inpatient care. Full code discharge planning Code(s): Z29.9 - ENCOUNTER FOR PROPHYLACTIC MEASURES, UNSPECIFIED (5) Bleeding nose Assessment/Plan: nasal packing placed by ENT no further bleeding Code(s): R04.0 - EPISTAXIS (6) Afib rate controlled Code(s): I48.91 - UNSPECIFIED ATRIAL FIBRILLATION (7) Hypothyroid Assessment/Plan: obtain lab results from family, TSH 2 weeks ago at [facility] 102 now 60 seen by endocrinology and IV sythroid given will change to synthroid 100mcg qd and continue to monitor Code(s): E03.9 - HYPOTHYROIDISM, UNSPECIFIED (8) Anemia Assessment/Plan: hgb stable 8.0 no indication for additional PRBC continue to monitor Code(s): D64.9 - ANEMIA, UNSPECIFIED Qualifiers: Anemia type: unspecified type Qualified Code(s): D64.9 - Anemia, unspecified medially stable to returb back to [facility] - Instructions Diet, Activity, Other Instructions: DISCHARGE YOUR VISIT You came to the hospital because you had a severe nose bleed. You were seen by ENT-Dr Hester and nasal packing was placed. Your thyroid function was also very low and IV synthroid was given and the oral dose was increased to 112mcg. Please floor with Dr Torres or your home manager protein in 2-3 weeks for repeat thyroid function labs. Continue to take your eliquis as prescribed. If your nose starts to bleed stop the eliquis. MEDICATIONS Please continue to take your home medications as prescribed. There was some changes Synthrois 112mcg daily take all other previous medications as prescribed DIET Continue your home diet. You hac have ensure supplements with each meal. ADDITIONAL CARE Please make an appointment to see your primary care provider, 3 week from today. ADDITIONAL INFORMATION Please call 911 or come directly to the emergency department if you experience unusual headache, vision change, shortness of breath, chest pain, numbness, tingling, loss of alertness/awareness, loss of function, unusual bleeding or any alarming symptoms. Thank you for allowing me to care for you. Kenny Dotson, [employer] [facility] [facility], [facility] [phone] Referrals: Panda Crowe MD [Primary Care Provider] - 3 Weeks Guero Pino MD [Staff Physician] - 3 Weeks (have thyroid labs done in 2- 3 weeks) Disposition: RETIREMENT FACILITY - Home Medications Comprehensive Discharge Medication List: Ambulatory Orders Albuterol Sulfate [Proventil Hfa] 6.7 gm IH PRN PRN 08/06/19 Allopurinol 300 mg PO DAILY 08/06/19 Apixaban [Eliquis -] 2.5 mg PO BID 08/06/19 Atenolol [Tenormin] 25 mg PO DAILY 08/06/19 Donepezil HCl [Aricept -] 10 mg PO HS 08/06/19 Polyethylene Glycol 3350 [Miralax 119 gm Btl -] 17 gm PO DAILY 08/06/19 Simvastatin [Zocor -] 40 mg PO HS 08/06/19 Acetaminophen [Tylenol .Regular Strength -] 650 mg PO Q6H PRN tablet 08/08/19 Allopurinol [Zyloprim -] 300 mg PO DAILY tablet 08/08/19 Atenolol [Tenormin -] 25 mg PO DAILY tablet 08/08/19 Atorvastatin Ca [Lipitor] 20 mg PO HS tablet 08/08/19 Donepezil HCl [Aricept -] 10 mg PO DAILY tablet 08/08/19 Levothyroxine [Synthroid -] 112 mcg PO DAILY #30 tablet 08/08/19 Levothyroxine [Synthroid -] 112 mcg PO DAILY@0700 #30 tablet 08/08/19 Problem List - Problems (1) HTN (hypertension) Code(s): I10 - ESSENTIAL (PRIMARY) HYPERTENSION (2) HLD (hyperlipidemia) Code(s): E78.5 - HYPERLIPIDEMIA, UNSPECIFIED (3) Dementia Code(s): F03.90 - UNSPECIFIED DEMENTIA WITHOUT BEHAVIORAL DISTURBANCE (4) Prophylactic measure Code(s): Z29.9 - ENCOUNTER FOR PROPHYLACTIC MEASURES, UNSPECIFIED (5) Bleeding nose Code(s): R04.0 - EPISTAXIS (6) Afib Code(s): I48.91 - UNSPECIFIED ATRIAL FIBRILLATION (7) Hypothyroid Code(s): E03.9 - HYPOTHYROIDISM, UNSPECIFIED (8) Anemia Code(s): D64.9 - ANEMIA, UNSPECIFIED Qualifiers: Anemia type: unspecified type Qualified Code(s): D64.9 - Anemia, unspecified This patient is new to me today: No Emergency Visit: Yes ED Registration Date: 08/06/19 Care time: The patient presented to the Emergency Department on the above date and was hospitalized for further evaluation of their emergent condition. Critical Care patient: No - Discharge Referral Referred to [facility] Med P.C.: No
[2019-08-08] MEDS ORDERED: LEVOTHYROXINE NA 75 MCG TABLET (FP) PO STA (16:41)
[2019-08-08] MEDS ORDERED: LEVOTHYROXINE NA 150 MCG TABLET PO SCH (16:41)
--- NOTE | 2019-08-08 16:50 | PN ---
Progress Note, Physician Chief Complaint: awake comfortable no complaint - Current Medication List Current Medications: Active Medications Acetaminophen (Tylenol -) 650 mg PO Q6H PRN PRN Reason: Fever Or Pain Last Admin: 08/07/19 09:50 Dose: 650 mg Albuterol Sulfate (Ventolin 0.083% Nebulizer Soln -) 1 amp NEB Q4H PRN PRN Reason: SHORT OF BREATH/WHEEZING Allopurinol (Zyloprim -) 300 mg PO DAILY [facility] Last Admin: 08/08/19 09:27 Dose: 300 mg Apixaban (Eliquis -) 2.5 mg PO BID [facility] Last Admin: 08/08/19 13:55 Dose: 2.5 mg Atenolol (Tenormin -) 25 mg PO DAILY [facility] Last Admin: 08/08/19 09:27 Dose: 25 mg Atorvastatin Calcium (Lipitor -) 20 mg PO HS [facility] Last Admin: 08/07/19 21:04 Dose: 20 mg Donepezil HCl (Aricept -) 10 mg PO DAILY [facility] Last Admin: 08/08/19 09:27 Dose: 10 mg Levothyroxine Sodium (Synthroid -) 150 mcg PO DAILY@0700 [facility] Levothyroxine Sodium (Synthroid -) 75 mcg PO ONCE STA Stop: 08/08/19 16:42 - Objective Vital Signs: Vital Signs Temperature 97.8 F 08/08/19 14:00 Pulse Rate 60 08/08/19 14:00 Respiratory Rate 20 08/08/19 14:00 Blood Pressure 98/52 L 08/08/19 14:00 O2 Sat by Pulse Oximetry (%) 98 08/06/19 13:29 Constitutional: Yes: Calm, Other Eyes: Yes: EOM Intact HENT: Yes: Normocephalic Neck: Yes: Trachea Midline Cardiovascular: Yes: Regular Rate and Rhythm Respiratory: Yes: CTA Bilaterally Gastrointestinal: Yes: Normal Bowel Sounds ...Rectal Exam: Yes: Deferred Genitourinary: Yes: WNL Extremities: Yes: WNL Edema: No Neurological: Yes: Alert, Oriented Labs: CBC, BMP 08/08/19 07:55 08/08/19 07:55 INR, PTT INR 1.07 (0.83-1.09) 08/07/19 07:50 Problem List - Problems (1) Hypothyroid Code(s): E03.9 - HYPOTHYROIDISM, UNSPECIFIED (2) Bleeding nose Code(s): R04.0 - EPISTAXIS Assessment/Plan Current Active Problems Afib (Acute) Anemia (Acute) Bleeding nose (Acute) Dementia (Acute) HLD (hyperlipidemia) (Acute) HTN (hypertension) (Acute) Hypothyroid (Acute) Prophylactic measure (Acute) Abnormal Lab Results 08/07/19 08/08/19 08/08/19 07:50 07:55 07:55 RBC 2.75 L Hgb 9.1 L Hct 26.4 L RDW 18.0 H Anion Gap 7 L BUN 27.3 H Random Glucose 73 L Total Protein 5.9 L Albumin 2.8 L TSH 70.20 H Free T3 1.4 L imp: plan: hypothyrodism improving clinically continue synthroid 150mcg daily alone repeat tsh free t4 in 2 weeks follow up to normalize slowly free t4 as outpatient
== END 2019-08-08 17:53 | DRG 151 ==
LOC: JER 07:27 → JERBED 12:16 → J6S 14:05
PROVIDERS: ATTEND Nurse Practitioner Acute Care
PROC: 2Y41X5Z Packing of Nasal Region using Packing Material (ICD-10-PCS; principal; 2019-08-06)
DX: R04.0 Epistaxis (principal); R71.0 Precipitous drop in hematocrit; I48.91 Unspecified atrial fibrillation; I10 Essential (primary) hypertension; E78.5 Hyperlipidemia, unspecified; E03.9 Hypothyroidism, unspecified; F03.90 Unspecified dementia, unspecified severity, without behavioral disturbance, psychotic disturbance, mood disturbance, and anxiety; R41.0 Disorientation, unspecified; E66.9 Obesity, unspecified; Z68.24 Body mass index [BMI] 24.0-24.9, adult; Z71.3 Dietary counseling and surveillance; Z29.9 Encounter for prophylactic measures, unspecified
CPT/HCPCS: 36415; 71045-TC-FY; 80048; 80053; 83735; 84439; 84443; 84481; 85025; 85610; 85730; 86850; 86900; 86901; 93005; 93010; 97116-GP; 97161-GP; 99284-25; 99285-25